=== PATIENT | female | born 1960 | race Caucasian/White ===

== ENCOUNTER 2021-06-30 18:03 | Emergency (ER) | payer MEDICARE, MEDICAID, SELFPAY ==
[2021-06-30 18:19] VITALS: BP 131/87; PULSE 100; RESP 20; TEMP 37.1; O2SAT 97; BMI 25.8
--- NOTE | 2021-06-30 19:33 | W.ED.BACK ---
HPI - Back Pain/Injury General: Chief Complaint: Back Pain/Injury Stated Complaint: low back pain,R leg pain Time Seen by Provider: 06/30/21 19:20 History of Present Illness: Patient is a 60-year-old female comes to the ED with lower back pain that radiates down the right leg. Symptoms started approximately 2 weeks ago continued to progress. She denies any known injury, fall or trauma to cause low back pain. She currently rates the pain an 8 out of 10 and describes it as a sharp and burning pain that radiates down into her right leg. Denies any lower extremity weakness, bladder or bowel incontinence or pelvic anesthesia. Associated symptoms: Deny abdominal pain, chills, dysuria, fatigue, fever(s), hematuria, nausea or vomiting Review of Systems Const: Denies: fever(s), chills or fatigue Eyes: Denies: change in vision or eye discomfort ENMT: Denies: throat pain, odynophagia, nasal discharge or nasal congestion Card: Denies: chest pain, palpitations, edema, swelling of feet/ankles, dyspnea on exertion or orthopnea Resp: Denies: dyspnea, productive cough or non-productive cough GI: Denies: abdominal pain, nausea, vomiting, diarrhea, constipation or hematochezia : Denies: flank pain, dysuria or hematuria Musc: Reports: back pain; Denies: neck pain or extremity swelling Skin/Breast: Denies: rash or new lesions Neuro: Denies: headache(s), numbness in extremities or weakness in extremities PFS ED PFSH: Medical History No pertinent family history Surgical History No pertinent past surgical history Physical Exam Const: COMMON NORMALS: patient oriented x3 GENERAL APPEARANCE: cooperative HENMT: COMMON NORMALS: normocephalic HEAD & SCALP: normocephalic MOUTH: Normal oral and palatal mucosa present THROAT: posterior oropharynx normal and uvula midline Neck/C-Spine: COMMON NORMALS: supple GENERAL: Yes normal visual inspection Resp: COMMON NORMALS: normal respiratory effort, No retractions, No use of accessory muscles and clear to auscultation bilaterally AUSCULTATION: clear to auscultation bilaterally Cardio: COMMON NORMALS: regular rate, regular rhythm, S1 normal heart sound present, S2 normal heart sound present, No gallops present (Cardio), No clicks present (Cardio), No murmurs present (Cardio) and Peripheral pulses 2+ throughout RATE: regular rate RHYTHM: regular rhythm HEART SOUNDS: S1 normal heart sound present and S2 normal heart sound present PERIPHERAL PULSES: Peripheral pulses 2+ throughout GI: COMMON NORMALS: Normal to inspection, nondistended, normoactive bowel sounds present, Soft to palpation, non-tender and no masses PALPATION: Yes Soft to palpation : COMMON NORMALS: Yes no CVA tenderness BLADDER/KIDNEY EXAM: Yes no CVA tenderness Back/Pelvis: COMMON NORMALS: no CVA tenderness LUMBAR SPINE/LOWER BACK: Yes pain with ROM, No lumbar spinal tenderness and Yes paraspinal muscle tenderness Lumbar paraspinal muscle tenderness: bilateral Bilateral lumbar paraspinal muscle tenderness: L4 and L5 Extremity: COMMON NORMALS: normal to inspection and full ROM Neuro: COMMON NORMALS: patient oriented x3 and moves all extremities Skin: GENERAL SKIN EXAM: dry skin Course Vital Signs: Vital signs: Vital Signs Temperature 98.7 F 06/30/21 18:19 Pulse Rate 80 06/30/21 20:15 Respiratory Rate 20 H 06/30/21 20:15 Blood Pressure 131/85 06/30/21 20:15 Pulse Oximetry 96 06/30/21 20:15 MDM - Back Pain/Injury Medical Decision Making Patient is a 60-year-old female comes to the ED with lower back pain that radiates down into her right leg. Symptoms have been going on for the last 2 weeks and have continued to progress. Denies any injury, fall or trauma to cause low back pain. Denies any cauda equina symptoms. Patient was given a dose of Norflex, Decadron and morphine while here in the ED and her pain improved. Patient diagnosed with lumbar radiculopathy and was discharged home with a prescription for a muscle relaxer and Medrol Dosepak. She was told to take [id number] Tylenol for pain. Return to ED precautions given. Patient would like a referral to a primary care physician so I placed an order with case management to get her established with a PCP. Patient understood and agreed with plan. Discharge Plan Discharge Patient Disposition: Home Clinical Impression: Lumbar radiculopathy Condition: Stable Prescriptions: New methocarbamol 750 mg tablet 750 mg PO Q8H PRN (Reason: Muscle spasms and pain) Qty: 30 0RF Medrol (Nathaniel) 4 mg tablets,dose pack See Rx Instructions .ROUTE .COMPLEX Qty: 21 0RF Rx Instructions: orally per package directions Discharge Orders: Discharge ED (Routine); Ordered 06/30/21 Ordered By: Luis Armando Yin Discharge Diet: Regular Discharge Activity: Increase activity as tolerated Patient Instructions: Lumbar Radiculopathy (ED) Activity Restrictions/Additional Instructions: Follow-up with medical provider as directed. Case management should be contacting you next over to set up an appointment with a primary care physician. Take medications as prescribed. Apply cold pack or heat on lower back to help with symptoms. Stretch lower back daily. Rest and limit lifting. return to the ER or your medical provider if condition worsens. Please read and understand discharge instructions. Thank you for choosing [facility] for your healthcare needs today. Please realize this is an emergency room and that we are providing you with a medical screening exam and this may not be complete and all inclusive of all the testing and or work up that you may need to determine your ailment or severity of your illness. It is very important that you follow up as instructed or that you return to the Emergency Department should you have concerns or if your condition changes or worsens in any way. Coding Level of Care Code ED Reading Professor for Rukhsana Vilchis Exam Comprehensive
[2021-06-30 19:59] VITALS: RESP 18
[2021-06-30] MEDS: morphine 4 mg/mL SDV 1 mL IM (19:59)
[2021-06-30] MEDS: dexamethasone 10 mg/mL INJ IM (19:59)
[2021-06-30] MEDS: orphenadrine 30 mg/mL Inj 2 mL 60 MG IM (20:00)
[2021-06-30 20:15] VITALS: BP 131/85; PULSE 80; RESP 20; O2SAT 96
--- NOTE | 2021-07-10 13:36 | DCPLANNER ---
donor recruitment manager had message to speak with patient about getting established with a primary care physician. donor recruitment manager is unable to speak with patient at this time, and unable to leave for a voicemail.
== END 2021-06-30 20:19 | disposition home or self-care (01) ==
PROVIDERS: Emergency Provider Physician Assistant
DX: M54.16 Radiculopathy, lumbar region (principal)
CPT/HCPCS: 96372; 99283; J1100; J2270; J2360